=== PATIENT | male | born 1965 | race Caucasian/White ===

== ENCOUNTER 2018-01-14 11:59 | Emergency (ER) | payer OTHER, SELFPAY ==
[2018-01-14 11:59] VITALS: BP 163/114; PULSE 83; RESP 15; TEMP 36.5; O2SAT 96; BMI 30.9
--- NOTE | 2018-01-14 12:19 | ED.DCSUM_ITS ---
- ER Visit Summary Date of Service: 01/14/18 Chief Complaint: Laceration History of Present Illness: The patient is a 52 M left hand dominant sustained a laceration to the middle phalanx of the left index finger when an oil gates kicked out from underneath an engine he was working on. It is work-related. He has no pain with range of motion or difficulty flexing and extending. No distal paresthesias. Physical Examination: 3 cm full-thickness laceration over the middle phalanx left index finger dorsal surface. It is contaminated in the wound edges are regular. The surrounding tissue is contused. He has normal 2 point determination at 6 mm distally. No evidence of extensor tendon injury. Line foreign body but the surrounding skin is quite contaminated with oil and grease. Test Results: X-ray is negative for fracture. Emergency Department Course and Treatment: X-ray negative for fracture. He was soaked for several hours and the skin was cleansed extensively around his wound because there was a large amount of grease. I anesthetized the area using 2 cc of lidocaine without epinephrine and irrigated it using a full liter of normal saline and cleansed this issue further with Shur-Clens. There is no evidence of foreign body within the wound. I then loosely approximated it using size 5 nylon sutures but there was a fair amount of avulsed tissue. It was reasonably approximated but there are several areas of excoriated tissue around it that could not be approximated due to avulsion of the tissue. I spoke at length with him regarding the high risk nature of this wound and explained signs of infection to watch for. I will place him on Keflex for 5 days. He was placed in a sterile dressing with an AlumaFoam splint and will follow up closely for a wound check. He will return if worse. Treatment Plan: Follow-up for a wound check in 24 hours Disposition: Home stable condition Impression: Initial encounter complex left index finger laceration This note was generated with [employer] dictation software. It may contain incorrect words, spelling, and punctuation that were not noted in review of the chart prior to signing ED Disposition - Plan for ED Patient: Chief Complaint: Laceration Diagnosis: Laceration of finger Instructions: ED Laceration Hand Prescriptions: Cephalexin [Keflex] 500 mg PO Q12 #10 capsule [facility]errals: [facility] - 1 Day
[2018-01-14] MEDS: Diphth,Pertuss(Acell),Tet Vac 0.5 ML Vial IM (12:41)
[2018-01-14] MEDS: Cephalexin 250 MG Capsule 500 MG PO (12:41)
--- NOTE | 2018-01-14 12:45 | RAD_ITS ---
STUDY: X-RAY - LEFT HAND REASON FOR EXAM: Male, 52 years old. laceration to left distal index finger TECHNIQUE: 3 view(s) of the hand. COMPARISON: None. FINDINGS: Normal radiocarpal articulation. Normal distal radioulnar joint. There is a subchondral cyst in the semilunate measures approximately 8 mm consistent with degenerative changes. Normal carpal articulations Normal carpometacarpal articulation of the thumb. Normal second through fifth carpometacarpal joints. Normal metacarpi. There is degenerative arthrosis of the metacarpophalangeal (MCP) joints. Normal interphalangeal joint of the thumb. Normal proximal and distal phalanges of the thumb. Normal metacarpophalangeal joints of the second through fifth fingers. There is diffuse articular joint space narrowing of the proximal and distal interphalangeal joints of the second through fifth fingers, but without erosive changes or periarticular soft tissue swelling. Normal phalanges of the second through fifth fingers. The soft tissue structures are unremarkable. RAD/Hand Min 3 Views IMPRESSION: Degenerative joint disease of the hand and wrist, as described above. Electronically Signed: Georgina Swartz MD at 13:01 EDT Tel , Service support ,
[2018-01-14 14:58] VITALS: BP 152/97; PULSE 70; RESP 16; O2SAT 99
== END 2018-01-14 14:59 | disposition home or self-care (01) ==
LOC: ED 12:37
PROVIDERS: Emergency Provider Emergency Medicine
DX: S61.211A Laceration without foreign body of left index finger without damage to nail, initial encounter (principal); K21.9 Gastro-esophageal reflux disease without esophagitis; Z79.899 Other long term (current) drug therapy; W26.8XXA Contact with other sharp object(s), not elsewhere classified, initial encounter; Y93.89 Activity, other specified; Y92.89 Other specified places as the place of occurrence of the external cause; Y99.0 Civilian activity done for income or pay
CPT/HCPCS: 12002; 73130; 90471; 90715; 99282